=== PATIENT | male | born 1940 | race Caucasian/White ===

== ENCOUNTER 2020-08-07 01:39 | Emergency (ER) | payer MEDICARE ==
[~2020-08-07] VITALS: Ht 172.7 cm; Wt 89.1 kg
--- NOTE | 2020-08-07 02:19 | PHYS DOC ---
Past Medical History Past Medical History: Depression, Hypertension, Schizophrenia, Other Additional Past Medical Histor: SWAN-NECK DEFORMITY, COGNITITIVE COMMUNICATION DEFICIT Past Surgical History: Other Additional Past Surgical Histo: UNKNOWN Smoking Status: Former Smoker Alcohol Use: None General Adult EDM: Chief Complaint: MECHANICAL FALL HPI: HPI: Patient is a 80 year old male with history of hypertension and schizoaffective disorder presents from [facility] by EMS after a fall. Patient fell yesterday. He reports that he was getting ready for the day when he lost his balance falling onto his right side. He was able to get up on his own. He denies head injury. No loss of consciousness. Does not take any anticoagulants. Patient is complaining of right shoulder pain since yesterday. Worse with any kind of movement. No numbness tingling. No neck or back pain. No chest pain shortness of breath nausea vomiting fever chills cough neck pain. Patient had x-ray of the facility that shows proximal humerus fracture Review of Systems: Review of Systems: Review of Systems: Constitutional: Denies fever or chills Eyes: Denies redness or eye pain HENT: Denies nasal congestion or sore throat Respiratory: Denies cough or shortness of breath Cardiovascular: Denies chest pain or palpitations GI: denies abdominal pain and nausea, denies vomiting or diarrhea : Denies dysuria or hematuria Musculoskeletal: Denies back pain or joint pain Integument: Denies rash or skin lesions Neurologic: Denies headache, focal weakness or sensory changes Heart Score: C/O Chest Pain: No Allergies: Allergies: Allergies Coded Allergies Type Severity Reaction Last Updated Verified No Known Drug Allergies 08/07/20 No Physical Exam: PE: *GENERAL APPEARANCE: Awake and alert. Cooperative. No acute distress. Non toxic appearing. HEAD: Normocephalic. Atraumatic. EYES: EOM's grossly intact. Sclera anicteric. Conjunctiva clear ENT:. Airway patent. Mucous membranes moist. No trismus. Tolerating secretions. NECK: Supple. Trachea midline. HEART: Regular rate and rhythm. Radial pulses 2+. Good capillary refill. LUNGS: Respirations unlabored. Clear to auscultation bilaterally. No rales, rhonchi, wheezing or retractions. ABDOMEN: Soft. Non-tender. No guarding or rebound. No CVA tenderness. No palpable or pulsatile mass. EXTREMITIES: No acute deformities. Right upper extremity: Tenderness palpation over the right shoulder. Range of motion limited secondary to pain. No tenderness palpation of the distal humerus forearm hand or wrist. Pulses sensation muscle strength normal. Left upper extremity: No tenderness to palpation. Range of motion sensation pulses muscle strength capillary refill normal. Lower extremity: No tenderness to palpation. Normal range of motion. Pulses normal. Back: No tenderness palpation of the cervical, thoracic or lumbar spine. SKIN: Warm and dry. No rash. NEUROLOGICAL: Alert and oriented x3. No gross neurological deficits. Moves all 4 extremities spontaneously. PSYCHIATRIC: Normal mood. Current Patient Data: Vital Signs: Vital Signs Date Time Temp Pulse Resp B/P (MAP) Pulse Ox O2 Delivery O2 Flow Rate FiO2 08/07/20 01:42 99.7 86 20 152/87 (108) 98 Room Air 99.7 EKG: EKG: [] Radiology/Procedures: Radiology/Procedures: PATIENT: MADHAVI SCHERER ACCOUNT: [id number] : 1940 LOCATION: ER AGE: 80 SEX: M EXAM STATUS: REG ER ORD. PHYSICIAN: INDIGO NOEL DO REASON: fall PROCEDURE: CT HEAD AND CERVICAL SPINE WO CT head without contrast: Reason for examination: Fell. Helical images were obtained through the brain with no contrast administered. Ventricular systems are symmetric and not dilated. No midline shift is seen. There is no evidence of intracranial hemorrhage, infarct, mass or edema. No abnormalities of seen at the orbits. The paranasal sinuses and mastoid air cells are clear. No acute skull abnormality is seen. IMPRESSION: No acute intracranial abnormality evident. CT cervical spine without contrast: Helical images were obtained through the cervical spine from skull base through the thoracic apices with no contrast administered. Reconstruction was performed in sagittal and coronal planes. The C1 ring is intact. The odontoid process is intact and normally centered between the lateral masses of C1. The cervical vertebral bodies are normally aligned anteriorly and posteriorly. No acute fracture or subluxation is seen in the posterior elements appear to be intact. There are however degenerative changes throughout the cervical spine from C3 through T1 with generalized loss of disc height throughout the cervical spine. There does not appear to be significant spinal stenosis. Prevertebral soft tissues are normal. Muscular bundles in the neck are symmetric. IMPRESSION: Degenerative spondylosis throughout the cervical spine. No acute abnormality seen in the cervical spine. Exposure: One or more of the following individualized dose reduction techniques were utilized for this examination: 1. Automated exposure control 2. Adjustment of the mA and/or kV according to patient size 3. Use of iterative reconstruction technique. Electronically signed by: Della Wilburn MD (08/07/2020 3:01 AM) [facility] DICTATED and SIGNED BY: DELLA WILBURN MD DATE: 08/07/20 [id number] PATIENT: MADHAVI SCHERER ACCOUNT: [id number] : 1940 LOCATION: ER AGE: 80 SEX: M EXAM STATUS: REG ER ORD. PHYSICIAN: INDIGO NOEL DO REASON: fall PROCEDURE: HUMERUS RIGHT Right humerus 2 views: Reason for examination: Fell. There is a comminuted fracture at the right humeral neck which appears to extend through the greater tuberosity which is minimal displacement. Shoulder joint appears be maintained. IMPRESSION: Fracture of the right humeral neck with extension to the greater tuberosity with minimal displacement. Right shoulder 4 views: Again noted is the minimally displaced right humeral neck fracture with extension through the greater tuberosity. The scapula appears to be intact and the clavicle appears to be intact. Joint spaces are maintained. IMPRESSION: Minimally displaced fracture involving the right humeral neck with extension through the greater tuberosity. Electronically signed by: Della Wilburn MD (08/07/2020 5:42 AM) [facility] DICTATED and SIGNED BY: DELLA WILBURN MD DATE: 08/07/20 [id number] Course & Med Decision Making: Course & Med Decision Making Medical decision making: This is an 80-year-old male presents emergency department after a fall yesterday. Transported from nursing facility by EMS. Here in the emergency department patient appears in no acute distress. Vital signs stable. Patient is only complaining of right shoulder pain. He is neurovascular intact in the bilateral upper extremities.. CT head neck were done that showed no acute abnormality. X-ray of the right shoulder and humerus show comminuted fracture of the right humeral neck extending through the greater tuberosity with minimal displacement. Shoulder joint maintained. I did speak with the on-call orthopedic physician, Dr. Stevenson, I discussed the patient's mechanism of injury physical exam and x-ray findings. He recommends shoulder shoulder immobilizer and follow-up with him in the office on Wednesday or of next week. I did speak with the patient. I discussed the orthopedic physician recommendations. He does report that the nursing facility that he is at does help coordinate follow-up appointments. This was all placed on his discharge instructions. Shoulder immobilizer placed. Patient's pain controlled. Patient will be transported back to facility by ambulance. The patient is given strict emergency department return precautions and follow up information. They express a verbal understanding of my instructions. The patient is aware of any labs and imaging. All questions are answered and patient is stable at the time of discharge. Dragon Disclaimer: Dragon Disclaimer: This electronic medical record was generated, in whole or in part, using a voice recognition dictation system. Departure Departure Impression: Primary Impression: Closed fracture of right proximal humerus Disposition: 05 DC/TRF OTHER TYPE INSTITUTI (Discharge back to facility by ambulance transport at 0630 on August 07, 2020. Patient stable at the time of transport.) Condition: STABLE Referrals: NIMESH STEVENSON MD Please call orthopedic physician (Dr. Stevenson) to schedule a follow up appointment on 08/08/2020 or Wednesday08/13/2020 Patient Instructions: Humerus Fracture, Treated with Immobilization, Humerus Fracture, Treated with Immobilization, [id number], Shoulder Fracture [facility]Proximal Humerus or [facility]oid[facility] INDIGO NOEL DO Aug 07, 2020 02:19
--- NOTE | 2020-08-07 03:03 | RAD ---
CT head without contrast: Reason for examination: Fell. Helical images were obtained through the brain with no contrast administered. Ventricular systems are symmetric and not dilated. No midline shift is seen. There is no evidence of intracranial hemorrhage, infarct, mass or edema. No abnormalities of seen at the orbits. The paranasa l sinuses and mastoid air cells are clear. No acute skull abnormality is seen. IMPRESSION: No acute intracranial abnormality evident. CT cervical spine without contrast: Helical images were obtained through the cervical spine from skull base through the thoracic apices w ith no contrast administered. Reconstruction was performed in sagittal and coronal planes. The C1 ring is intact. The odontoid process is intact and normally centered between the lateral jarred s of C1. The cervical vertebral bodies are normally aligned anteriorly and posteriorly. No acute frac ture or subluxation is seen in the posterior elements appear to be intact. There are however degenera tive changes throughout the cervical spine from C3 through T1 with generalized loss of disc height th roughout the cervical spine. There does not appear to be significant spinal stenosis. Prevertebral so ft tissues are normal. Muscular bundles in the neck are symmetric. IMPRESSION: Degenerative spondylosis throughout the cervical spine. No acute abnormality seen in the cervical spine. Exposure: One or more of the following individualized dose reduction techniques were utilized for thi s examination: 1. Automated exposure control 2. Adjustment of the mA and/or kV according to patient size 3. Use of iterative reconstruction technique. Electronically signed by: Della Javier MD (08/07/2020 3:01 AM) [facility]
--- NOTE | 2020-08-07 05:45 | RAD ---
Right humerus 2 views: Reason for examination: Fell. There is a comminuted fracture at the right humeral neck which appears to extend through the greater tuberosity which is minimal displacement. Shoulder joint appears be maintained. IMPRESSION: Fracture of the right humeral neck with extension to the greater tuberosity with minimal displacement . Right shoulder 4 views: Again noted is the minimally displaced right humeral neck fracture with extension through the greater tuberosity. The scapula appears to be intact and the clavicle appears to be intact. Joint spaces are maintained. IMPRESSION: Minimally displaced fracture involving the right humeral neck with extension through the greater tube rosity. Electronically signed by: Della Javier MD (08/07/2020 5:43 AM) [facility]
[2020-08-07 06:18] VITALS: BP 133/73
== END 2020-08-07 07:01 | disposition short-term general hospital (02) ==
LOC: ER 01:39
DX: S42.201A Unspecified fracture of upper end of right humerus, initial encounter for closed fracture (principal); R51.9 Headache, unspecified; I10 Essential (primary) hypertension; F20.9 Schizophrenia, unspecified; F32.9 Major depressive disorder, single episode, unspecified; Z87.891 Personal history of nicotine dependence; W18.39XA Other fall on same level, initial encounter; Y93.89 Activity, other specified; Y92.89 Other specified places as the place of occurrence of the external cause; Y99.8 Other external cause status
CPT/HCPCS: 29105; 70450; 72125; 73030; 73060; 99285-25